=== PATIENT | female | born 1995 ===

== ENCOUNTER 2023-04-29 15:28 | Inpatient (IN) | payer SELFPAY ==
[2023-04-29] MEDS: Lactated Ringers 1,000 ML IV SCH ×2 (15:30→16:34)
[2023-04-29] MEDS ORDERED: Methylergonovine 0.2 MG/1 ML Amp IM PRN (15:33)
[2023-04-29] MEDS ORDERED: Ondansetron 4 MG/2 ML SDV IVPUSH PRN (15:33)
[2023-04-29] MEDS ORDERED: Water For Irrigation,Sterile 1,000 ML Container IRR PRN (15:33)
[2023-04-29] MEDS ORDERED: Sodium Chloride 0.9% 10 ML Syringe FLUSH PRN (15:33)
[2023-04-29] MEDS ORDERED: Sodium Chloride 0.9% 20 ML SDV IV PRN (15:33)
[2023-04-29] MEDS ORDERED: Lidocaine 1% 50 ML MDV INJECT PRN (15:33)
[2023-04-29] MEDS ORDERED: Misoprostol 200 MCG Tab PO PRN (15:33)
[2023-04-29] MEDS ORDERED: Ampicillin 2 GM in Sodium Chloride 0.9% 100 ML IV ONE (15:33)
[2023-04-29] MEDS ORDERED: Tranexamic Acid IN NACL,ISO-OS 1,000 MG in Premix Bag 1 BAG IV PRN ×2 (15:33)
[2023-04-29] MEDS ORDERED: Carboprost Tromethamine 250 MCG/1 mL Vial IM PRN (15:33)
[2023-04-29] MEDS ORDERED: Sodium Chloride 0.9% 2.5 ML Syringe FLUSH PRN (15:33)
[2023-04-29 15:44] LABS: HEMATOCRIT 37.3 % (37.0-47.0); HEMOGLOBIN 12.7 g/dL (12.0-16.0); MEAN CORPUSCULAR HEMOGLOBIN 30.8 pg (28.0-32.0); MEAN CORPUSCULAR VOLUME 90.5 fL (83.0-99.0); MEAN PLATELET VOLUME 11.8 fL (9.4-12.3); PLATELET COUNT,PLT 211 K/uL (150-400); RED BLOOD CELL COUNT 4.12 M/uL (4.10-5.30); WHITE BLOOD CELL COUNT,WBC 15.98 K/uL (3.9-11.3)
[2023-04-29] MEDS ORDERED: Oxytocin/0.9 % Sodium Chloride 30 UNIT/500 ML BAG IV SCH (15:45)
[2023-04-29] MEDS ORDERED: Bupivacaine 0.5% 10 ML SDV ONE (16:17)
[2023-04-29] MEDS ORDERED: Phenylephrine HCl 0.5 MG/5 ML AMP ONE (16:17)
[2023-04-29] MEDS: Ropivacaine HCl/PF 200 ML ONE ×2 (16:31→16:55)
[2023-04-29] MEDS ORDERED: ePHEDrine 50 MG/ML SDV IVPUSH PRN ×2 (16:40)
[2023-04-29] MEDS ORDERED: Phenylephrine HCl 0.5 MG/5 ML AMP IVPUSH PRN (16:40)
[2023-04-29] MEDS ORDERED: Ropivacaine HCl/PF 400 MG in Premix Bag 1 BAG EPIDUR SCH (16:45)
[2023-04-29] MEDS ORDERED: Docusate Sodium 100 MG Cap PO PRN (18:19)
[2023-04-29] MEDS ORDERED: Lanolin 100% Cream 7 GM Tube TOP PRN (18:19)
[2023-04-29] MEDS ORDERED: Witch Hazel Medicated Pads 40/Jar TOP PRN (18:19)
[2023-04-29] MEDS ORDERED: oxyCODONE 5 MG Tab PO PRN (18:19)
[2023-04-29] MEDS ORDERED: Benzocaine/Menthol 20%-0.5% Spray 78 GM Cannister TOP PRN (18:19)
[2023-04-29] MEDS ORDERED: Acetaminophen 500 MG Tab PO PRN (18:19)
[2023-04-29] MEDS ORDERED: Ibuprofen 800 MG Tab PO PRN (18:19)
[2023-04-29] MEDS ORDERED: Ampicillin 1 GM in Sodium Chloride 0.9% 50 ML IV SCH (19:45)
[2023-04-30 06:02] LABS: HEMATOCRIT 30.9 % (37.0-47.0); HEMOGLOBIN 10.6 g/dL (12.0-16.0)
== END 2023-05-01 14:30 | disposition home or self-care (01) | DRG 807 ==
LOC: MW.OB 15:28 → OBSVTOIN 18:19 → MW.OB 23:00
PROVIDERS: ADMIT Obstetrics & Gynecology Obstetrics; ATTEND Obstetrics & Gynecology Obstetrics
PROC: 10E0XZZ Delivery of Products of Conception, External Approach (ICD-10-PCS; principal; 2023-04-29)
PROC: 0KQM0ZZ Repair Perineum Muscle, Open Approach (ICD-10-PCS; 2023-04-29)
PROC: 3E0R3BZ Introduction of Anesthetic Agent into Spinal Canal, Percutaneous Approach (ICD-10-PCS; 2023-04-29)
PROC: 00HU33Z Insertion of Infusion Device into Spinal Canal, Percutaneous Approach (ICD-10-PCS; 2023-04-29)
DX: O99.824 Streptococcus B carrier state complicating childbirth (principal); Z37.0 Single live birth; O70.1 Second degree perineal laceration during delivery; Z3A.39 39 weeks gestation of pregnancy
CPT/HCPCS: 36415; 51702; 59025; 85014; 85018; 85027; 86592; 86850; 86900; 86901; A9270-GY; J0290; J0665; J2371; J2590; J2795; J3490; J7120